=== PATIENT | female | born 1995 | race African-American/Black ===

== ENCOUNTER 2016-09-07 18:25 | Emergency (ER) | payer OTHER ==
[2016-09-07] MEDS ORDERED: HYDROcod/ACETAM 5/325 MG TABLET PO STA (18:39)
[2016-09-07] MEDS ORDERED: HYDROcod/ACETAM 5/325 MG TABLET ONE (18:41)
== END 2016-09-07 18:53 | disposition home or self-care (01) ==
DX: N64.4 Mastodynia (principal); N63 Unspecified lump in breast
CPT/HCPCS: 99283; A9270

== ENCOUNTER 2017-09-16 23:50 | Outpatient (CLI) | payer OTHER ==
[2017-09-17] MEDS ORDERED: TERBUTALINE 1 MG/ML VIAL SUBQ ONE (00:21)
[2017-09-17] MEDS ORDERED: TERBUTALINE 1 MG/ML VIAL SUBQ SCH (00:33)
[2017-09-17] MEDS ORDERED: LACTATED RINGERS 500 ML IV SCH (00:45)
[2017-09-17] MEDS ORDERED: BETAMETHASONE 30 MG/5 ML VIAL IM SCH (00:46)
[2017-09-17] MEDS ORDERED: BETAMETHASONE 30 MG/5 ML VIAL ONE (00:56)
[2017-09-17] MEDS ORDERED: SODIUM CHLORIDE FLUSH 0.9% 10 ML SYRINGE ONE (00:57)
[2017-09-17] MEDS ORDERED: LACTATED RINGERS 1,000 ML IV ONE (00:57)
[2017-09-17 01:26] VITALS: BP 91/67
[2017-09-17 01:36] LABS: BILIRUBIN,URINE NEGATIVE (NEGATIVE); CLARITY,URINE HAZY (CLEAR); GLUCOSE, URINE (UA) NEGATIVE (NEGATIVE); KETONES,URINE (UA) NEGATIVE (NEGATIVE); LEUKOCYTE ESTERASE, URINE NEGATIVE (NEGATIVE); NITRITE,URINE NEGATIVE (NEGATIVE); OCCULT BLOOD,URINE NEGATIVE (NEGATIVE); PROTEIN,URINE NEGATIVE (NEGATIVE); UROBILINOGEN,URINE 0.2 (NORMAL) E.U./dL (NORMAL)
[2017-09-17 01:41] LABS: AMORPHOUS SEDIMENT,UR Few /LPF; BACTERIA,URINE Few /HPF (None Seen); RBC,URINE 0-5 /HPF (0-5); SQUAMOUS EPITHELIAL CELL,UR MOD Squamous (<= Few)
[2017-09-17] MEDS ORDERED: NIFEdipine ER 30 MG TABLET PO ONE (02:01)
[2017-09-17 02:37] LABS: BASOPHILS % (AUTO) 0.2 %; EOSINOPHILS # (AUTO) 0.1 10^3/uL (0.0-0.7); EOSINOPHILS % (AUTO) 1.2 %; HGB - HEMOGLOBIN 11.9 g/dL (12.0-16.0); LYMPHOCYTES # (AUTO) 2.8 10^3/uL (1.5-3.5); LYMPHOCYTES % (AUTO) 35.7 %; MEAN CORPUSCULAR HEMOGLOBIN 34.6 pg (27.0-31.0); MEAN CORPUSCULAR HGB CONC 35.5 g/dL (32.0-36.0); MEAN CORPUSCULAR VOLUME 97.5 fL (81.0-99.0); MONOCYTES # (AUTO) 0.5 10^3/uL (0.0-1.0); MONOCYTES % (AUTO) 6.1 %; NEUTROPHILS # (AUTO) 4.5 10^3/uL (1.5-6.6); NEUTROPHILS % (AUTO) 56.8 %; PLT - PLATELET COUNT 140 10^3/uL (130-450); RED BLOOD COUNT 3.45 10^6/uL (4.20-5.40); RED CELL DISTRIBUTION WIDTH 12.4 % (12.0-15.0); WHITE BLOOD COUNT 7.9 x10^3/uL (4.8-10.8)
== END 2017-09-17 02:15 | disposition home or self-care (01) ==
LOC: WFO 23:50 → FBP 23:54 → WFO 09-17 02:15
PROVIDERS: ATTEND Obstetrics & Gynecology
DX: O60.03 Preterm labor without delivery, third trimester (principal); Z3A.35 35 weeks gestation of pregnancy; O34.219 Maternal care for unspecified type scar from previous cesarean delivery
CPT/HCPCS: 81001; 85025; 87081; 96372; 99213; A9270; J7120; 87086

== ENCOUNTER 2017-09-18 08:04 | Outpatient (CLI) | payer OTHER ==
[2017-09-18 08:15] VITALS: BP 107/67
[2017-09-18] MEDS ORDERED: BETAMETHASONE 30 MG/5 ML VIAL IM SCH (09:11)
--- NOTE | 2017-09-18 14:26 | Ultrasound Report ---
DATE OF SERVICE: 09/18/2017 BIOPHYSICAL PROFILE: 09/18/2017 CLINICAL INDICATION: labor. TECHNIQUE: Transabdominal pelvic ultrasound performed for global evaluation. Transvaginal pelvic ultrasound performed for detailed evaluation. Real-time scanning performed and static images obtained. FINDINGS: There is a single viable intrauterine gestation. heart rate is 144 BPM. The fetus receives 2 points for movement, 2 points for breathing, 2 points for tone, and 2 points for amniotic fluid volume, yielding an 8/8 biophysical profile. Amniotic fluid volume is normal, with an ROSSI of 13.4. Transvaginal imaging of the cervix demonstrates a 4.5 cm cervical length, and the cervix is closed without evidence of previa. IMPRESSION: SINGLE VIABLE INTRAUTERINE GESTATION. 8/8 BIOPHYSICAL PROFILE. CERVIX IS 4.5 CM AND CLOSED ON TRANSVAGINAL IMAGING. TD: 09/18/2017 15:25
== END 2017-09-18 11:34 | disposition home or self-care (01) ==
LOC: WFO 08:04 → FBP 08:06 → WFO 11:34
PROVIDERS: ATTEND Obstetrics & Gynecology
DX: O60.03 Preterm labor without delivery, third trimester (principal); Z3A.35 35 weeks gestation of pregnancy
CPT/HCPCS: 76817; 76819; 96372; 99214